=== PATIENT | female | born 1940 | race Caucasian/White ===

== ENCOUNTER 2017-09-13 14:51 | Emergency (ER) | payer MEDICARE ==
[~2017-09-13 14:51] MED LIST: ISOVUE-370 76%-LOCM 1 ML ONE
[2017-09-13 16:12] LABS: #Basophils 0.1 thou/uL (0.0-0.2); #Eosinphils 0.1 thou/uL (0.0-0.7); #Monocytes 0.6 thou/uL (0.11-0.59); #Neutrophils 4.4 thou/uL (1.40-6.50); %Basophils 0.9 % (0.0-1.0); %Eosinophils 1.9 % (0.0-10.0); %Lymphocytes 15.9 % (21.0-51.0); %Monocytes 9.7 % (0.0-10.0); %Neutrophils 71.6 % (42.0-75.0); Hemoglobin 15.5 g/dL (12.0-16.0); Mean Corpuscular HGB CONC 33.4 g/dL (32.0-36.0); Mean Corpuscular Hemoglobin 32.2 pg (27.0-31.0); Mean Corpuscular Volume 96.4 fl (81.0-99.0); Mean Platelet Volume 6.5 fL (7.4-10.4); Platelet Count 315 thou/uL (130-400); RBC Distribution Width 11.9 % (11.5-14.5); White Blood Cell (WBC) Count 6.2 thou/uL (4.8-10.8)
[2017-09-13 16:32] LABS: ALT (SGPT) 14 U/L (8-55); AST (SGOT) 19 U/L (5-34); Albumin 4.1 g/dL (3.4-4.8); Alkaline Phosphatase 81 U/L (40-150); Anion Gap 14 mmol/L (10-20); BUN (Urea Nitrogen) 9 mg/dL (9.8-20.1); Bilirubin, Total 0.8 mg/dL (0.2-1.2); Calc. Creatinine Clearance 0 mL/min (70-130); Calcium 9.8 mg/dL (7.8-10.44); Carbon Dioxide 28 mmol/L (23-31); Chloride 96 mmol/L (98-107); Estimated GFR-MDRD 74; Globulin 3.1 g/dL (2.4-3.5); Glucose 122 mg/dL (83-110); Potassium 3.9 mmol/L (3.5-5.1); Protein, Total 7.2 g/dL (6.0-8.3); Sodium 134 mmol/L (136-145)
[2017-09-13 16:36] LABS: CKMB 0.6 ng/mL (0-6.6); Troponin I Less than 0.010 ng/mL (< 0.028)
[2017-09-13] MEDS ORDERED: Morphine 4 MG/ML VIAL ONE (16:58)
[2017-09-13] MEDS ORDERED: Ondansetron ODT 4 MG TAB ONE (16:59)
[2017-09-13 17:01] LABS: Bilirubin Negative (Negative); Blood, Urine Negative (Negative); Clarity CLEAR (Clear); Glucose, Urine (Dipstick) Negative (Negative); Leukocyte Negative (Negative); Nitrite Negative (Negative); Protein, Urine (Dipstick) Trace mg/dL (Neg-Trace); pH, Urine 5.5 (5.0-9.0)
--- NOTE | 2017-09-13 19:55 | CT ---
CT OF ABDOMEN AND PELVIS WITH IV CONTRAST: 09/13/17 INDICATION: Epigastric abdominal pain and dehydration. COMPARISON: Prior exam dated 07/30/15. FINDINGS: There is bibasilar atelectasis. There is a small hypodensity within the right hepatic dome likely reflective of a cyst. Additional sm all hypodensities seen within segment of the right hepatic lobe on image 14, series 2 likely refle ctive of a cyst. There is fatty atrophy of the pancreas. There is a 3 mm stone involving the left mid kidney that is stable compared to prior exam. The adrena l glands, spleen and right kidney are normal appearing. There are mild calcifications involving the abdominal aorta. There is a normal appendix in the right lower quadrant. There is scattered diverticula involving the colon. The colon is largely decompressed. There is fluid density and loops of small bowel within the right lower quadrant which is nonspecific and can be reflective of an enteritis. There is diffuse osteopenia. 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 There is scattered degenerative and os teoarthritic change. There is prominent hemangioma within L1. IMPRESSION: 1. No acute abnormality demonstrated. 2. Hepatic cysts. 3. Fatty atrophy of the pancreas. 4. Left nephrolithiasis. 5. Colonic diverticulosis. POS: [facility]
== END 2017-09-13 18:50 | disposition home or self-care (01) ==
LOC: ERS 14:51
DX: E86.0 Dehydration (principal); M19.90 Unspecified osteoarthritis, unspecified site; I10 Essential (primary) hypertension; J44.9 Chronic obstructive pulmonary disease, unspecified; Z79.899 Other long term (current) drug therapy
CPT/HCPCS: 36415; 74177; 80053; 81003; 82553; 83690; 84484; 85025; 87086; 93005; 96361; 96374; J2270; Q0162

== ENCOUNTER 2018-02-26 08:06 | Inpatient (IN) | payer MEDICARE ==
[2018-02-26] MEDS ORDERED: Ondansetron PF 4 MG/2 ML Vial ONE ×2 (08:28→08:29)
[2018-02-26 08:44] LABS: #Monocytes 0.7 thou/uL (0.11-0.59); #Neutrophils 4.5 thou/uL (1.40-6.50); %Basophils 0.7 % (0.0-1.0); %Eosinophils 0.5 % (0.0-10.0); %Lymphocytes 15.7 % (21.0-51.0); %Monocytes 10.9 % (0.0-10.0); %Neutrophils 72.1 % (42.0-75.0); Hemoglobin 14.7 g/dL (12.0-16.0); Mean Corpuscular HGB CONC 32.4 g/dL (32.0-36.0); Mean Corpuscular Hemoglobin 30.4 pg (27.0-31.0); Mean Corpuscular Volume 93.9 fL (78.0-98.0); Mean Platelet Volume 6.7 fL (7.4-10.4); Platelet Count 353 thou/uL (130-400); RBC Distribution Width 11.8 % (11.5-14.5); Red Blood Cell (RBC) Count 4.83 mill/uL (4.20-5.40); White Blood Cell (WBC) Count 6.2 thou/uL (4.8-10.8)
[2018-02-26 09:12] LABS: ALT (SGPT) 14 U/L (8-55); AST (SGOT) 18 U/L (5-34); Alkaline Phosphatase 73 U/L (40-150); Anion Gap 12 mmol/L (10-20); BUN (Urea Nitrogen) 10 mg/dL (9.8-20.1); Bilirubin, Total 0.8 mg/dL (0.2-1.2); Calc. Creatinine Clearance 0 mL/min (70-130); Calcium 9.3 mg/dL (7.8-10.44); Carbon Dioxide 28 mmol/L (23-31); Chloride 92 mmol/L (98-107); Estimated GFR-MDRD 81; Globulin 3.1 g/dL (2.4-3.5); Glucose 122 mg/dL (83-110); Potassium 3.1 mmol/L (3.5-5.1); Protein, Total 7.1 g/dL (6.0-8.3); Sodium 129 mmol/L (136-145)
[2018-02-26 10:15] LABS: Bilirubin Negative (Negative); Blood, Urine Negative (Negative); Clarity CLEAR (Clear); Glucose, Urine (Dipstick) Negative (Negative); Leukocyte Negative (Negative); Nitrite Negative (Negative); Protein, Urine (Dipstick) Negative (Neg-Trace); Specific Gravity, Urine 1.007 (1.002-1.036); Urobilinogen 0.2 mg/dL (0.2-1.0)
--- NOTE | 2018-02-26 10:44 | RAD ---
CHEST 1 VIEW: HISTORY: Cough. COMPARISON: Radiograph prior day. FINDINGS: There is a left sub-basilar airspace opacity. The lungs are mildly hyperinflated. No pneumothorax. Mild blunting of the left lower costophrenic sulcus. Right reverse total shoulder arthroplasty. IMPRESSION: 1. Subtle left basilar airspace opacity concerning for infection. Followup after treatment recommen ded. 2. Mild dilatation of the pulmonary arteries suggesting pulmonary arterial hypertension. POS: [facility]
--- NOTE | 2018-02-26 12:06 | PDOC.FPRHP ---
- History of Present Illness Chief Complaint: N/V History of Present Illness: Jessica Laguerre is a 77 year old female who presents to the ED with cough and vomiting. Pt states that her cough began last Saturday. She went to an urgent care and was diagnosed with a sinus infection. She was started on Doxycycline. She states that she started taking some Ciprofloxacin that she had been prescribed previously. She states the ciprofloxacin also made her nauseous. She went to see Dr. Lucia yesterday who recommended that the patient cut the ciprofloxacin in half, but take it more frequently, and recommended some over- the-counter remedies as well. Chest x-ray performed at the clinic yesterday was negative. When clarifying with the patient, it appears that her vomiting actually occurs in response to coughing fits. She continues to complain of cough productive of yellow sputum. She denies fever, chills, wheezing, and dyspnea. ED Course: In the ED. Pt received 1L NS, Levaquin 750 mg, and Zofran 4 mg. - Allergies/Adverse Reactions Allergies Allergy/AdvReac Type Severity Reaction Status Date / Time azithromycin [From Zithromax] Allergy Verified 02/26/18 16:11 cephalexin monohydrate Allergy Verified 02/26/18 16:11 [From Keflex] Cephalosporins Allergy Verified 02/26/18 16:11 CECHLOR Allergy Intermediate Uncoded 02/26/18 16:11 - Home Medications Medication Instructions Recorded Confirmed Type Cholecalciferol [Vitamin D3] 5,000 unit PO DAILY 03/03/15 02/26/18 History Lisinopril/Hydrochlorothiazide 1 tab PO QAM 03/03/15 02/26/18 History [Lisinopril-Hctz 10-12.5 mg Tab] Ondansetron [Zofran ODT] 4 mg PO BID 02/26/18 02/26/18 History - History PMHx: Hypertension, Osteoarthritis, COPD PSHx: R NATHAN, x2, Laminectomy, Panniculectomy FHx: Mother had GA in her 90s Social: Pt denies tobacco, alcohol, and drug use. She is a former smoker who smoked for 15 years, but quit in her 30s. - Review of Systems General: denies: fever/chills Eyes: denies: vision changes ENT: reports: nasal congestion Respiratory: reports: cough, congestion. denies: shortness of breath Cardiovascular: reports: chest pain (present with coughing) Gastrointestinal: reports: vomiting. denies: abdominal pain Skin: denies: rashes Musculoskeletal: denies: pain, tenderness Neurological: denies: weakness Psychological: denies: depression - Vital signs BP: 179/111 HR: 76 RR: 16 Tmax: 98.1 Pox: 98% on RA Wt: 63.5 kg - Physical Exam Constitutional: NAD HEENT: normocephalic and atraumatic, PERRLA, EOMI, conjunctiva clear, no scleral icterus Neck: supple, FROM, trachea midline, no JVD -Neck: No lymphadenopathy Heart: RRR, normal S1/S2, no murmurs/rubs/gallops, pulses present Lungs: CTAB, good air movement, no rales/rhonchi, no wheezing, no retractions Abdomen: soft, non-tender, bowel sounds present, no masses/distention Musculoskeletal: normal structure, ROM grossly normal Neurological: no focal deficit, CN II-XII intact, normal sensation Skin: no rash/lesions, good turgor Psychiatric: normal mood and affect FMR H&P: Results - Labs Result Diagrams: 02/26/18 08:27 02/26/18 08:27 Lab results: WBC 6.2 thou/uL (4.8-10.8) 02/26/18 08:27 Hgb 14.7 g/dL (12.0-16.0) 02/26/18 08:27 Hct 45.4 % (36.0-47.0) 02/26/18 08:27 MCV 93.9 fL (78.0-98.0) 02/26/18 08:27 Plt Count 353 thou/uL (130-400) 02/26/18 08:27 Neutrophils % 72.1 % (42.0-75.0) 02/26/18 08:27 Sodium 129 mmol/L (136-145) L 02/26/18 08:27 Potassium 3.1 mmol/L (3.5-5.1) L 02/26/18 08:27 Chloride 92 mmol/L (98-107) L 02/26/18 08:27 Carbon Dioxide 28 mmol/L (23-31) 02/26/18 08:27 BUN 10 mg/dL (9.8-20.1) 02/26/18 08:27 Creatinine 0.70 mg/dL (0.6-1.1) 02/26/18 08:27 Glucose 122 mg/dL (83-110) H 02/26/18 08:27 Lactic Acid 1.2 mmol/L (0.5-2.2) 02/26/18 08:27 Calcium 9.3 mg/dL (7.8-10.44) 02/26/18 08:27 Total Bilirubin 0.8 mg/dL (0.2-1.2) 02/26/18 08:27 AST 18 U/L (5-34) 02/26/18 08:27 ALT 14 U/L (8-55) 02/26/18 08:27 Alkaline Phosphatase 73 U/L (40-150) 02/26/18 08:27 Serum Total Protein 7.1 g/dL (6.0-8.3) 02/26/18 08:27 Albumin 4.0 g/dL (3.4-4.8) 02/26/18 08:27 Urine Ketones 40 mg/dL (Negative) H 02/26/18 09:33 Urine Blood Negative (Negative) 02/26/18 09:33 Urine Nitrite Negative (Negative) 02/26/18 09:33 Ur Leukocyte Esterase Negative (Negative) 02/26/18 09:33 - Radiology Interpretation Chest x-ray Status: report reviewed by me (left basilar airspace opacity concerning for pneumonia) FMR H&P: A/P - Problem List (1) Community acquired pneumonia Current Visit: Yes Status: Acute Code(s): J18.9 - PNEUMONIA, UNSPECIFIED ORGANISM Qualifiers: Laterality: left Lung location: lower lobe of lung Qualified Code(s): J18.1 - Lobar pneumonia, unspecified organism (2) Hypertension Current Visit: Yes Status: Acute Code(s): I10 - ESSENTIAL (PRIMARY) HYPERTENSION Qualifiers: Hypertension type: essential hypertension Qualified Code(s): I10 - Essential (primary) hypertension (3) Hypokalemia Current Visit: Yes Status: Acute Code(s): E87.6 - HYPOKALEMIA (4) Hyponatremia Current Visit: Yes Status: Acute Code(s): E87.1 - HYPO-OSMOLALITY AND HYPONATREMIA Assessment and Plan: Likely secondary to volume depletion, given vomiting - Plan Community acquired pneumonia - will admit patient to medical unit for observation. - will treat with Levofloxacin 750 mg QD - will check for urine strep antigen and legionella antigen, and a procalcitonin. - blood cultures pending. - mucolytics ordered. Hypokalemia - will replace and check magnesium level. COPD - pt diagnosed with COPD several years ago, uncertain if diagnosis was made with pulmonary function testing. - pt uses albuterol less than once monthly. - duonebs prn. Hyponatremia - potentially related to volume depletion given history of vomiting and ketonuria, however, may potentially be related to thiazide diuretic. - urine sodium pending. - will continue IV fluid hydration. - may consider discontinuing thiazide. Disposition/LOS: Length of stay: likely no greater than 48 hours. Code status: full code DVT ppx: SCDs.
[2018-02-26] MEDS ORDERED: Sodium Chloride 0.9% 1,000 ML IV SCH (14:26)
[2018-02-26] MEDS ORDERED: Acetaminophen 325 MG TAB PO PRN ×2 (14:26→14:50)
[2018-02-26] MEDS ORDERED: Ondansetron PF 4 MG/2 ML Vial IVP PRN (14:26)
[2018-02-26] MEDS ORDERED: Ondansetron ODT 4 MG TAB SL PRN (14:26)
[2018-02-26] MEDS ORDERED: Potassium Chloride 20 MEQ TAB PO SCH (15:30)
[2018-02-26 16:22] LABS: Legionella Urinary Ag Negative (Negative); Strep pneumo Urine Ag NEGATIVE (NEGATIVE)
--- NOTE | 2018-02-26 16:32 | PDOC.EVN ---
Event Note - Event Note Event Note: Case d/w Dr. Villa and agree with history, exam, assessment and plan as documented- 77 yo female with h/o HTN who presented c/o cough, weakness and vomiting. Patient states that her symptoms started 1 week ago with congestion seen at urgent care and diagnosed with sinusitis and started on doxycycline. Patient developed N/V and stopped the medication. she started some cipro which she had at home and followed yesterday with her PCP who diagnosed her with pneumonia and recommended she continue with the cipro. Patient reports that she has only been able to tolerate liquids and has been feeling weaker. Denies any SOB. States that the cough is productive of yellow sputum. Denies any fever/ chills. PMH/PSH/Meds/All reviewed and agree with resident's documentation. Afebrile VSS Exam repeated by me and agree with resident's findings. Labs: WBC= 6.2, H/H=14.7/45.4, War=913, Na= 129, K=3.1. Cl-92, CO2=28, BUN/Cr=10/0.70, Gluc =81. Urine Legionella and strep pneumo- negative, CXR- Left basilar airspace opacity. A/P: 1) CAP- intolerant of oral abx; lace in obs - continue levaquin. 2 ) Hyponatremia- most likely due to GI losses and dehydration; urine studies pending. 3) Hypokalemia- continue replace potassium and recheck in AM
[2018-02-26] MEDS: Lactated Ringer's 1,000 ML IV SCH (17:00)
[2018-02-26] MEDS: guaiFENesin/DM ER PO SCH (20:45)
[2018-02-26] MEDS: Ondansetron ODT 4 MG TAB PO PRN (23:15)
[2018-02-27] MEDS ORDERED: hydrALAZINE 10 MG TAB PO PRN (04:15)
[2018-02-27 04:51] LABS: Anion Gap 9 mmol/L (10-20); BUN (Urea Nitrogen) 8 mg/dL (9.8-20.1); Calc. Creatinine Clearance 75 mL/min (70-130); Calcium 8.6 mg/dL (7.8-10.44); Carbon Dioxide 26 mmol/L (23-31); Chloride 97 mmol/L (98-107); Estimated GFR-MDRD 90; Glucose 122 mg/dL (83-110); Sodium 128 mmol/L (136-145)
[2018-02-27] MEDS: Lactated Ringer's 1,000 ML IV SCH (06:23)
--- NOTE | 2018-02-27 06:58 | PDOC.FM ---
- Subjective Subjective: Doing well this AM. Reports able to tolerate broth yesterday. States the nausea and vomiting is triggered by the coughing. She is going to try eating chicken noodle soup this AM. One episode overnight at 11pm of coughing/n/v. - Objective MAR Reviewed: Yes Vital Signs & Weight: Vital Signs (12 hours) Temp Pulse Resp BP BP Pulse Ox 02/27/18 06:23 87 156/82 H 02/27/18 04:31 85 182/99 H 02/27/18 03:25 98.7 F 85 16 174/88 H 96 02/26/18 23:25 98.9 F 79 14 148/84 H 96 02/26/18 19:19 98.3 F 82 20 175/102 H 98 Weight Weight 63.911 kg I&O: 02/25/18 02/26/18 02/27/18 06:59 06:59 06:59 Intake Total 870 Output Total 200 Balance 670 Result Diagrams: 02/26/18 08:27 02/27/18 03:52 Phys Exam - Physical Examination Constitutional: NAD Neck: supple Respiratory: no wheezing, no rhonchi, clear to auscultation bilateral Cardiovascular: RRR, no significant murmur Gastrointestinal: soft, non-tender, positive bowel sounds Mild nonpitting edema LEs Psychiatric: normal affect, A&O x 3 Dx/Plan (1) Hypertension Code(s): I10 - ESSENTIAL (PRIMARY) HYPERTENSION Status: Acute Qualifiers: Hypertension type: essential hypertension Qualified Code(s): I10 - Essential (primary) hypertension (2) Hypokalemia Code(s): E87.6 - HYPOKALEMIA Status: Acute (3) Hyponatremia Code(s): E87.1 - HYPO-OSMOLALITY AND HYPONATREMIA Status: Acute - Plan Plan: Hyponatremia - likely 2/2 volume depletion 2/2 n/v vs thiazide - Today 128 - Urine Na, osm support SIADH - Will d/c LR @ [address] on fluid restriction - Will discontinue lisinopril-HCTZ - Zofran for nausea/vomiting CAP - likely viral vs treated bacterial pneumonia - Urine strep/legionella antigen neg - Procal: 0.02 - Blood cx pending - Mucolytics PRN - Discontinue Levofloxacin as procal neg and lungs clear on exam. Educated pt that xray findings will lag behind clinical symptoms and cough may be present for up to 6 weeks after treatment. - LR @ 75 HTN - Holding Lisinopril-HCTZ for hyponatremia - Start Amlodpine 5mg - Will monitor BPs Hypokalemia, resolved COPD - Duonebs PRN Code status: FULL DVT ppx: SCDs.
[2018-02-27] MEDS ORDERED: Lisinopril/Hydrochlorothiazide 10 mg/12.5 mg Tablet PO SCH (09:00)
[2018-02-27] MEDS: guaiFENesin/DM ER PO SCH ×2 (09:13→21:49)
[2018-02-27] MEDS ORDERED: Amlodipine 5 MG TAB PO SCH (10:00)
--- NOTE | 2018-02-27 11:38 | PDOC.EVN ---
Attending Addendum - Attending Addendum Date/Time: 02/27/18 [id number] I personally evaluated the patient and discussed the management with Dr. Llanes. I agree with the History, Examination, Assessment and Plan documented in her progress note with any addition or exceptions noted below. Patient feeling improved. No evidence for bacterial PNA at this time and her symptoms are likely due to the normal process of clearing a pneumonia. No indication for further abx therapy. She is mildly hyponatremic likely 2/2 decreased solute intake over the last few days and compounded by medications. Will change to norvasc therapy at this time and see how BP does today. If feeling well this afternoon, should be ready for discharge as long as she has repeat labs in the outpatient setting.
[2018-02-27 14:35] LABS: Anion Gap 11 mmol/L (10-20); BUN (Urea Nitrogen) 11 mg/dL (9.8-20.1); Calc. Creatinine Clearance 78 mL/min (70-130); Calcium 8.7 mg/dL (7.8-10.44); Carbon Dioxide 25 mmol/L (23-31); Chloride 97 mmol/L (98-107); Estimated GFR-MDRD Greater than 90; Glucose 122 mg/dL (83-110); Potassium 3.7 mmol/L (3.5-5.1); Sodium 129 mmol/L (136-145)
[2018-02-27] MEDS: Ondansetron ODT 4 MG TAB PO PRN (15:08)
[2018-02-27] MEDS: Ondansetron PF 4 MG/2 ML Vial IVP PRN (18:20)
[2018-02-28] MEDS: Ondansetron PF 4 MG/2 ML Vial IVP PRN ×2 (00:37→08:49)
[2018-02-28 03:32] VITALS: BMI 22.4
[2018-02-28] MEDS ORDERED: Promethazine 25 MG TAB PO PRN (03:33)
--- NOTE | 2018-02-28 06:00 | PDOC.FM ---
- Subjective Subjective: Pt complains of nausea, vomiting and cramping abdominal pain. She feels weak. Reports eating a little soup and crackers yesterday that she later vomited up. Denies diarrhea, BROWN, fever, chills. - Objective MAR Reviewed: Yes Vital Signs & Weight: Vital Signs (12 hours) Temp Pulse Resp BP Pulse Ox 02/28/18 03:00 98.2 F 87 20 167/99 H 97 02/27/18 19:21 99.0 F 85 16 135/77 95 Weight Admit Weight 64.09 kg Weight 63.004 kg I&O: 02/26/18 02/27/18 02/28/18 06:59 06:59 06:59 Intake Total 870 1260 Output Total 200 1000 Balance 670 260 Result Diagrams: 02/26/18 08:27 02/28/18 06:18 <Sirisha Llanes - Last Filed: 02/28/18 09:43> - Objective Vital Signs & Weight: Vital Signs (12 hours) Temp Pulse Resp BP BP Pulse Ox 02/28/18 08:50 84 143/80 H 02/28/18 08:00 84 18 143/80 H 97 02/28/18 07:53 98.3 F 84 18 143/80 H 97 02/28/18 03:00 98.2 F 87 20 167/99 H 97 Weight Admit Weight 64.09 kg Weight 63.004 kg I&O: 02/27/18 02/28/18 03/01/18 06:59 06:59 06:59 Intake Total 870 1260 Output Total 200 1000 300 Balance 670 260 -300 Result Diagrams: 02/26/18 08:27 02/28/18 06:18 <Ritchie Crawford - Last Filed: 02/28/18 11:04> Phys Exam - Physical Examination Constitutional: NAD Neck: supple Respiratory: no wheezing, clear to auscultation bilateral Cardiovascular: RRR Gastrointestinal: soft, positive bowel sounds Diffusely "uncomfortable" to palpation. Intentional guarding Musculoskeletal: pulses present trace edema Neurological: moves all 4 limbs Psychiatric: normal affect, A&O x 3 <Sirisha Llanes - Last Filed: 02/28/18 09:43> Dx/Plan (1) Hypertension Code(s): I10 - ESSENTIAL (PRIMARY) HYPERTENSION Status: Acute Qualifiers: Hypertension type: essential hypertension Qualified Code(s): I10 - Essential (primary) hypertension (2) Hypokalemia Code(s): E87.6 - HYPOKALEMIA Status: Acute (3) Hyponatremia Code(s): E87.1 - HYPO-OSMOLALITY AND HYPONATREMIA Status: Acute - Plan Plan: Hyponatremia - likely 2/2 volume depletion 2/2 n/v vs thiazide - Urine Na, osm support SIADH - Appears to be dehydrated, will start NS @ 125 - Encouraged liquids and foods with high sodium content such as broth - Consider salt tabs if pt unable to tolerate PO diet - Holding lisinopril-HCTZ - Zofran for nausea/vomiting CAP - likely viral vs treated bacterial pneumonia - Urine strep/legionella antigen neg - Procal: 0.02 - Blood cx pending - Mucolytics PRN - Discontinue Levofloxacin as procal neg and lungs clear on exam. Educated pt that xray findings will lag behind clinical symptoms and cough may be present for up to 6 weeks after treatment. - LR @ 75 HTN - Holding Lisinopril-HCTZ for hyponatremia - Continue Amlodpine 5mg - Will monitor BPs Hypokalemia, resolved COPD - Duonebs PRN Code status: FULL DVT ppx: SCDs. <Sirisha Llanes - Last Filed: 02/28/18 09:43> Attending Addendum - Attending Addendum Date/Time: 02/28/18 1102 I personally evaluated the patient and discussed the management with Dr. Llanes. I agree with the History, Examination, Assessment and Plan documented above with any addition or exceptions noted below. Patient here with continued nausea, vomiting, malaise, and now worsening hyponatremia. I suspect this is due to poor solute intake. Encouraged fluids and foods that have solute and less free water. Will resume IVF as she is not tolerating PO. WIll give Bentyl and try to get nausea under control today. Encourage PO intake as tolerated. Continue to trend labs, but do not anticipate her leaving today. <Ritchie Crawford - Last Filed: 02/28/18 11:04>
[2018-02-28 07:00] LABS: Anion Gap 12 mmol/L (10-20); BUN (Urea Nitrogen) 14 mg/dL (9.8-20.1); Calc. Creatinine Clearance 82 mL/min (70-130); Calcium 8.7 mg/dL (7.8-10.44); Carbon Dioxide 24 mmol/L (23-31); Chloride 94 mmol/L (98-107); Estimated GFR-MDRD Greater than 90; Glucose 129 mg/dL (83-110); Potassium 3.5 mmol/L (3.5-5.1); Sodium 126 mmol/L (136-145)
[2018-02-28] MEDS: Amlodipine 5 MG TAB PO SCH (08:50)
[2018-02-28] MEDS: guaiFENesin/DM ER PO SCH ×2 (08:58→21:34)
--- NOTE | 2018-02-28 11:49 | PDOC.EVN ---
Event Note - Event Note Event Note: Persistent Hyponatremia, pt symptomatic with nausea, vomiting and weakness. Will transition to inpatient.
[2018-02-28 14:59] LABS: Anion Gap 11 mmol/L (10-20); BUN (Urea Nitrogen) 16 mg/dL (9.8-20.1); Calc. Creatinine Clearance 74 mL/min (70-130); Calcium 8.9 mg/dL (7.8-10.44); Carbon Dioxide 27 mmol/L (23-31); Chloride 94 mmol/L (98-107); Estimated GFR-MDRD 90; Glucose 127 mg/dL (83-110); Potassium 3.8 mmol/L (3.5-5.1); Sodium 128 mmol/L (136-145)
[2018-02-28] MEDS: Sodium Chloride 0.9% 1,000 ML IV SCH (16:13)
[2018-02-28] MEDS: Dicyclomine 10 MG CAP PO SCH ×2 (16:17→21:35)
[2018-03-01] MEDS: Dicyclomine 10 MG CAP PO SCH ×3 (00:47→13:57)
[2018-03-01] MEDS: Sodium Chloride 0.9% 1,000 ML IV SCH ×2 (03:46→12:46)
[2018-03-01 05:23] LABS: Anion Gap 9 mmol/L (10-20); BUN (Urea Nitrogen) 15 mg/dL (9.8-20.1); Calc. Creatinine Clearance 81 mL/min (70-130); Calcium 8.1 mg/dL (7.8-10.44); Carbon Dioxide 26 mmol/L (23-31); Chloride 99 mmol/L (98-107); Estimated GFR-MDRD Greater than 90; Glucose 111 mg/dL (83-110); Potassium 3.7 mmol/L (3.5-5.1); Sodium 130 mmol/L (136-145)
[2018-03-01] MEDS: Ondansetron PF 4 MG/2 ML Vial IVP PRN (05:33)
--- NOTE | 2018-03-01 05:47 | PDOC.FM ---
- Subjective Subjective: Ms Laguerre is feeling good today. She reports symptoms improved throughout the day yesterday. She does endorse some crampy abdominal pain. She was able to tolerate soup and crackers yesterday for meals. Unsure if she feels well enough to go home. - Objective MAR Reviewed: Yes Vital Signs & Weight: Vital Signs (12 hours) Temp Pulse Resp BP BP Pulse Ox 02/28/18 23:26 98.2 F 89 16 177/88 H 94 L 02/28/18 20:00 100 02/28/18 18:37 98.5 F 92 16 138/81 100 Weight Admit Weight 64.09 kg Weight 65.544 kg I&O: 02/27/18 02/28/18 03/01/18 06:59 06:59 06:59 Intake Total 870 1260 1002 Output Total 200 1000 300 Balance 670 260 702 Result Diagrams: 02/26/18 08:27 03/01/18 04:33 <Sirisha Llanes - Last Filed: 03/01/18 10:05> - Objective Vital Signs & Weight: Vital Signs (12 hours) Temp Pulse Resp BP Pulse Ox 03/01/18 09:12 81 03/01/18 07:04 98.1 F 81 16 174/88 H 96 02/28/18 23:26 98.2 F 89 16 177/88 H 94 L Weight Admit Weight 64.09 kg Weight 65.544 kg I&O: 02/28/18 03/01/18 03/02/18 06:59 06:59 06:59 Intake Total 1260 1202 Output Total 1000 300 Balance 260 902 Result Diagrams: 02/26/18 08:27 03/01/18 04:33 <Ritchie Crawford - Last Filed: 03/01/18 10:28> Phys Exam - Physical Examination Constitutional: NAD Neck: supple Respiratory: no wheezing Cardiovascular: RRR, no significant murmur Gastrointestinal: soft, non-tender, positive bowel sounds Musculoskeletal: no edema trace edema Neurological: moves all 4 limbs Psychiatric: normal affect, A&O x 3 <Sirisha Llanes - Last Filed: 03/01/18 10:05> Dx/Plan (1) Hypertension Code(s): I10 - ESSENTIAL (PRIMARY) HYPERTENSION Status: Acute Qualifiers: Hypertension type: essential hypertension Qualified Code(s): I10 - Essential (primary) hypertension (2) Hypokalemia Code(s): E87.6 - HYPOKALEMIA Status: Acute (3) Hyponatremia Code(s): E87.1 - HYPO-OSMOLALITY AND HYPONATREMIA Status: Acute - Plan Plan: Hyponatremia - likely 2/2 volume depletion- n/v vs thiazide vs SIADH - Urine Na, osm support SIADH - D/c IVF - Continue to encouraged liquids and foods with high sodium content such as broth - Consider salt tabs if pt unable to tolerate PO diet - Holding lisinopril-HCTZ - Zofran for nausea/vomiting CAP - likely viral vs treated bacterial pneumonia - Urine strep/legionella antigen neg - Procal: 0.02 - Blood cx NGTD @ 48hrs - Mucolytics PRN - Stopped antibiotics 02/26 HTN - Holding Lisinopril-HCTZ for hyponatremia - Continue Amlodpine 5mg - Will monitor BPs Hypokalemia, resolved COPD - Duonebs PRN Code status: FULL DVT ppx: SCDs <Sirisha Llanes - Last Filed: 03/01/18 10:05> Attending Addendum - Attending Addendum Date/Time: 03/01/18 1027 I personally evaluated the patient and discussed the management with Dr. Llanes. I agree with the History, Examination, Assessment and Plan documented above with any addition or exceptions noted below. Patient feeling better today. Less nausea, and hypoNa is improved. Continue to promote dietary intake of solute and fluid hydration. If feels well this afternoon, should be stable for discharge. <Ritchie Crawford - Last Filed: 03/01/18 10:28>
[2018-03-01 07:05] VITALS: BP 174/88; TEMP 98.1
[2018-03-01] MEDS: Amlodipine 5 MG TAB PO SCH (09:12)
[2018-03-01] MEDS: guaiFENesin/DM ER PO SCH (12:46)
--- NOTE | 2018-03-02 02:16 | DIS-2 ---
DATE OF ADMISSION: 02/28/2018 DATE OF DISCHARGE: 03/01/2018 RESIDENT: Sirisha Llanes, PGY1 ADMITTING ATTENDING: Flakita Sarkar MD DISCHARGE ATTENDING: Ritchie Crawford MD CONSULTATIONS: None. PROCEDURE: Chest x-ray: Subtle left basilar airspace opacity concerning for infection, mild dilation of pulmonary arteries suggesting pulmonary arterial hypertension. PRIMARY DIAGNOSES: 1. Hyponatremia, resolving. 2. Viral pneumonia. SECONDARY DIAGNOSES: 1. Hypertension. 2. Chronic obstructive pulmonary disease. DISCHARGE MEDICATIONS: 1. Vitamin D3 5000 units daily. 2. Zofran 4 mg b.i.d. 3. Amlodipine 5 mg daily. 4. Mucinex DM 1 tab q.12 hours. 5. DuoNeb 3 mL q.4 hours p.r.n. DISCONTINUED MEDICATIONS: Lisinopril/hydrochlorothiazide 10/12.5 mg q.a.m. HISTORY OF PRESENT ILLNESS AND HOSPITAL COURSE: Ms. Laguerre is a 77-year- old female who presented with cough and vomiting. She had been evaluated in Urgent Care and diagnosed with sinus infection and was started on doxycycline. This resulted in vomiting, so she started taking some ciprofloxacin that she had at home. This also made her nauseous. X-ray was performed at the clinic that was negative yesterday at Dr. Lucia's office. Cough was productive of yellow sputum. She was admitted for concern of community-acquired pneumonia that failed outpatient treatment with new left basilar airspace opacity. Procalcitonin was 0.02. Therefore, antibiotics were not initiated. Urine strep antigen and legionella antigen were also negative. Duonebs were effective at reducing patient's symptoms. The patient was noted to have hyponatremia of 128 and symptomatic with weakness , nausea, vomiting. Her lisinopril and thiazide diuretic were stopped for this reason. Urine sodium 45, urine osmolality 225, supported SIADH. Her IV fluids were stopped and she was put on a fluid restriction; however, the patient became dehydrated and fluids needed to be continued the next day. The patient was drinking Kaitlin which was low in sodium. She was encouraged to start drinking drinks that contain sodium and broth and crackers. Salt tabs were considered, but did not need to be initiated as patient's sodium increased to 130 prior to discharge and her nausea and vomiting have improved. Patient was noted to be hypokalemic at 3.1, which resolved with oral potassium. Patient's chronic medical condition of hypertension was managed with a new medication of amlodipine 5 mg as her lisinopril and hydrochlorothiazide were discontinued for hyponatremia. Should the patient did have elevated blood pressures as high as 177/88 during admission; however, she also had low readings of 130s/70s, so it was not increased and blood pressure medications can be adjusted in the outpatient setting. Her COPD was managed with home DuoNebs p.r.n. DISPOSITION: Stable. DISCHARGE INSTRUCTIONS: 1. Location: Home. 2. Diet: High sodium. 3. Activity: No restrictions. 4. Followup: Follow up with PCP within 3-7 days. [facility]
== END 2018-03-01 15:17 | disposition home or self-care (01) | DRG 640 ==
LOC: ERS 08:06 → ERHOLD 11:50 → 2SW 14:08 → OBSVTOIN 02-28 11:47 → ONC 02-28 18:27
PROVIDERS: ADMIT Student in an Organized Health Care Education/Training Program; ATTEND Student in an Organized Health Care Education/Training Program
DX: E87.1 Hypo-osmolality and hyponatremia (principal); J12.9 Viral pneumonia, unspecified; I10 Essential (primary) hypertension; E87.6 Hypokalemia; J44.9 Chronic obstructive pulmonary disease, unspecified
CPT/HCPCS: 36415; 71045; 71046; 80048; 80053; 81003; 83605; 83735; 83930; 83935; 84145; 84300; 85025; 87040; 87086; 87899; 96361; 96365; 96366; 96372; 96375; J1956; J2405; Q0162